=== PATIENT | female | born 1955 | race Caucasian/White ===

== ENCOUNTER 2017-02-14 19:15 | Emergency (ER) | payer SELFPAY ==
--- NOTE | 2017-02-14 20:33 | DIAGNOSTIC IMAGING REPORT ---
PROCEDURE: XR CHEST 1 VIEW INDICATION: CHEST PAIN TECHNIQUE: Portable AP view (1930 hours). COMPARISON: None. FINDINGS: There is a 10 mm nodular density overlying the left lower thorax which may represent a nipple shadow. Lungs are otherwise clear. Heart and mediastinum are normal. Thorax is normal. IMPRESSION: 1. There is a 10 mm nodular density overlying the left lower thorax which may represent a nipple shadow. Repeat chest x-ray with nipple markers is recommended. 2. Otherwise negative chest. 3. Findings discussed with Dr. Russ Garcia.
--- NOTE | 2017-02-14 21:46 | DIAGNOSTIC IMAGING REPORT ---
PROCEDURE: XR CHEST 2 VIEW INDICATION: S pain. Follow up possible nipple shadows. TECHNIQUE: PA and lateral views at 2045 hours with nipple markers (includes repeat oblique RPO view). COMPARISON: Compared to portable chest x-ray earlier in the day (02/14/2017 1930 hours). FINDINGS: Confirmation of bilateral lower lobe nipple shadows of. No evidence of lung nodule. Lungs are clear. Heart and mediastinum are normal. Thorax is normal. IMPRESSION: 1. Confirmation of bilateral nipple shadows. 2. Negative chest. 3. Findings discussed with Dr. Russ Garcia.
--- NOTE | 2017-02-14 23:19 | ED NURSING NOTES ---
Clinical Report - Nurses [facility] [address] [place] [address] 02/14/2017 19:16 Patient: TEETEE DOIMNGO TRIAGE Triage time 19:17. Acuity: LEVEL 2. Chief Complaint: CHEST PAIN and DISCOMFORT. Alert. SEPSIS SCREEN: Sepsis Screen. Negative (no infection suspected/documented). --19:24 Augustine Kirby R.N. 19:17 02/14/17. BP: 192/112. HR: 66 (regular and normal rate). RR: 20 (regular). O2 saturation: 100% on room air. Temp: 98.3 F. Pain level now: 04/20. --19:24 Augustine Kirby R.N. Weight: 47.6 kg stated. Height/Length: 66 inches Per Patient. BMI: 16.9. --19:25 Augustine Kirby R.N. Medications Propranolol HCl ER Oral. --19:19 Augustine Kirby R.N. Allergies Codeine. Penicillins. --19:19 Augustine Kirby R.N. History Arrived by EMS. Historian: patient. Unaccompanied. Onset. (2 weeks ago). ( "chest pressure" with vomiting, nausea, and SOA for "a couple weeks".). She has had difficulty breathing, nausea and vomiting. Treatment PRODUCT SAFETY HEAD: (Nitro spray per EMS). SOCIAL HX: Former smoker. History of occasional drug use: marijuana. No alcohol use. --19:24 Augustine Kirby R.N. SELF HARM ASSESSMENT: A self harm assessment was performed. The patient answered "no" to the question "Do you have thoughts of harming or killing yourself?" and "Are you here because you tried to hurt yourself?". ABUSE ASSESSMENT: Abuse assessment: The patient was asked "Do you feel safe in your home?". --19:25 Augustine Kirby R.N. PROBLEMS: COPD - Chronic Obstructive Pulmonary Disease. Hypertension. --19:20 Augustine Kirby R.N. ADDITIONAL SURGERIES: Hysterectomy. Knee Surgery. Nose Surgery. --19:21 Augustine Kirby R.N. Interventions ID and allergy band on patient. To treatment room. --19:24 Augustine Kirby R.N. PHYSICAL ASSESSMENT ( Patient pulled her IV out by accident. Bleeding controlled and dressing applied. Dr. Ruben Lou, notified and he stated that it was ok for her to not have the IV replaced at this time.). --22:14 Augustine Kirby R.N. ( Patient states that her nausea is "better" but still present.). --22:14 Augustine Kirby R.N. 22:14 02/14/17. BP: 178/106. HR: 74. RR: 20. O2 saturation: 100% on room air. --22:14 Augustine Kirby R.N. ( Patient resting in bed). GENERAL / NEURO / PSYCH: Alert. Oriented X 4. RESPIRATORY: Respirations not labored. --22:46 Augustine Kirby R.N. NURSING PROGRESS NOTES 19:25 02/14/2017 Site #1 started prior to arrival by EMS via IV in the right forearm with an 18g angiocath. Saline lock flushed with 10 mL saline. --19:26 Augustine Kirby R.N. youth nutritional monitor, pulse oximeter and NIBP monitor placed on patient. Patient gowned. Head of bed elevated. Reassurance given. Two patient identifiers checked. Call light placed in reach. Side rails up x 2. Bed placed in lowest position. Brakes of bed on. Patient ready for evaluation- chart flagged. Patient waiting for evaluation. --19:26 Augustine Kirby R.N. 20:12 02/14/2017 Started bag #1 1000 mL IV Fluids IV NS (Saline); bolus of 500 mL over 30 minute(s) then at 125 mL/hr over 4 hour(s) via site #1 via IV pump. Allergies verified and confirmed 5 rights. IV patency established. IV site checked: no pain, redness, or swelling. IV flushed thoroughly pre- and post-medication administration. --20:12 Keesha Cordero R.N. 20:12 02/14/2017 Zofran (Ondansetron HCl) IVP 4 mg given over 1 minute(s) via site #1. Allergies verified and confirmed 5 rights. IV patency established. IV site checked: no pain, redness, or swelling. IV flushed thoroughly pre- and post-medication administration. --20:12 Keesha Cordero R.N. 20:37 02/14/2017 PROTONIX (Pantoprazole Sodium) IVP 40 mg given over 2 minute(s) via site #1. Allergies verified and confirmed 5 rights. IV patency established. IV site checked: no pain, redness, or swelling. IV flushed thoroughly pre- and post-medication administration. IVP given by RN. --20:40 Augustine Kirby R.N. 20:40 02/14/2017 Clonidine Topical Patch/Pad 0.2 mg. Applied to the right upper arm. Allergies verified and confirmed 5 rights. --20:41 Augustine Kirby R.N. 21:09 02/14/2017 PHENERGAN (Promethazine HCl) IVP 25 mg given over 2 minute(s) via site #1. Allergies verified and confirmed 5 rights. IV patency established. IV site checked: no pain, redness, or swelling. IV flushed thoroughly pre- and post-medication administration. IVP given by RN. --21:14 Augustine Kirby R.N. 21:12 02/14/2017 IV Fluids IV NS Discontinued: completed. Total amount infused: 1000 mL. IV patency established. IV site checked: no pain, redness, or swelling. IV flushed thoroughly. --23:30 Augustine Kirby R.N. 21:25 02/14/2017 GI Cocktail WHITE PO 30 mL with Lidocaine Viscous Mouth/Throat 15 mL, Maalox Plus Oral 15 mL was refused by patient because of nausea. Augustine Kirby --21:25 Augustine Kirby R.N. 21:51 02/14/17. ( Patient accidentally pulled out her IV. Catheter observed to be intact. Right arm IV site cleaned and dressing applied. Primary RN notified). --21:51 Keesha Cordero R.N. 22:37 02/14/2017 HALDOL (Haloperidol Lactate) IM 5 mg given. Given in the left gluteus violeta. Allergies verified, confirmed 5 rights and sedative warning given to the patient. --22:37 Keesha Cordero R.N. 23:00 02/14/17. BP: 159/89. HR: 75. RR: 17. O2 saturation: 96% on room air. --23:14 Augustine Kirby R.N. <<STRICKEN ENTRY-- 23:00 02/14/17. BP: 159/89. HR: 75. O2 saturation: 96% on room air. --23:14 Augustine Kirby R.N. --END STRIKE>> Change to Details. --23:29 Augustine Kirby R.N. <<STRICKEN ENTRY-- 23:02/14/17. BP: 159/89. HR: 75. RR: 17. O2 saturation: 96% on room air. --23:14 Augustine Kirby R.N. --END STRIKE>> Change to Details. --23:29 Augustine Kriby R.N. DISPOSITION / DISCHARGE 23:02/14/17. BP: 159/89. HR: 75. RR: 17. O2 saturation: 96% on room air. --23:29 Augustine Kirby R.N. Departure time: 23:28. Condition at departure: stable. No learning barriers present. Discharge instructions provided and reviewed with the patient and family. Reviewed warnings. Reviewed medication(s) side effects, precautions, dosing and course information. Prescription(s) given to the patient. Treatments reviewed. Reviewed referrals for followup. Patient and family verbalized understanding. Written instructions provided in British. The patient was discharged home and accompanied by in store demonstrator. She left the Emergency Department ambulatory and via private vehicle. Boring Machine Set Up Operator driving. --23:29 Augustine Kirby R.N. 23:00 02/14/17. BP: 159/89. HR: 75. RR: 17. O2 saturation: 96% on room air. --23:29 Augustine Kirby R.N. <<STRICKEN ENTRY-- 23:00 02/14/17. BP: 159/89. HR: 75. RR: 17. O2 saturation: 96% on room air. --23:29 Augustine Kirby R.N. --END STRIKE>> Change to Details. --23:29 Augustine Kirby R.N. Locked/Released at 02/14/2017 23:31 by Augustine Kirby R.N.
--- NOTE | 2017-02-14 23:19 | ED NURSING NOTES ---
Clinical Report - Nurses [facility] [address] [place] [address] 02/14/2017 19:16 Patient: TEETEE DOMINGO TRIAGE Triage time 19:17. Acuity: LEVEL 2. Chief Complaint: CHEST PAIN and DISCOMFORT. Alert. SEPSIS SCREEN: Sepsis Screen. Negative (no infection suspected/documented). --19:24 Augustine Kirby R.N. 19:17 02/14/17. BP: 192/112. HR: 66 (regular and normal rate). RR: 20 (regular). O2 saturation: 100% on room air. Temp: 98.3 F. Pain level now: 04/20. --19:24 Augustine Kirby R.N. Weight: 47.6 kg stated. Height/Length: 66 inches Per Patient. BMI: 16.9. --19:25 Augustine Kirby R.N. Medications Propranolol HCl ER Oral. --19:19 Augustine Kirby R.N. Allergies Codeine. Penicillins. --19:19 Augustine Kirby R.N. History Arrived by EMS. Historian: patient. Unaccompanied. Onset. (2 weeks ago). ( "chest pressure" with vomiting, nausea, and SOA for "a couple weeks".). She has had difficulty breathing, nausea and vomiting. Treatment PESTICIDE USE MEDICAL COORDINATOR: (Nitro spray per EMS). SOCIAL HX: Former smoker. History of occasional drug use: marijuana. No alcohol use. --19:24 Augustine Kirby R.N. SELF HARM ASSESSMENT: A self harm assessment was performed. The patient answered "no" to the question "Do you have thoughts of harming or killing yourself?" and "Are you here because you tried to hurt yourself?". ABUSE ASSESSMENT: Abuse assessment: The patient was asked "Do you feel safe in your home?". --19:25 Augustine Kirby R.N. PROBLEMS: COPD - Chronic Obstructive Pulmonary Disease. Hypertension. --19:20 Augustine Kirby R.N. ADDITIONAL SURGERIES: Hysterectomy. Knee Surgery. Nose Surgery. --19:21 Augustine Kirby R.N. Interventions ID and allergy band on patient. To treatment room. --19:24 Augustine Kirby R.N. PHYSICAL ASSESSMENT ( Patient pulled her IV out by accident. Bleeding controlled and dressing applied. Dr. Ruben Lou, notified and he stated that it was ok for her to not have the IV replaced at this time.). --22:14 Augustine Kirby R.N. ( Patient states that her nausea is "better" but still present.). --22:14 Augustine Kirby R.N. 22:14 02/14/17. BP: 178/106. HR: 74. RR: 20. O2 saturation: 100% on room air. --22:14 Augustine Kirby R.N. ( Patient resting in bed). GENERAL / NEURO / PSYCH: Alert. Oriented X 4. RESPIRATORY: Respirations not labored. --22:46 Augustine Kirby R.N. NURSING PROGRESS NOTES 19:25 02/14/2017 Site #1 started prior to arrival by EMS via IV in the right forearm with an 18g angiocath. Saline lock flushed with 10 mL saline. --19:26 Augustine Kirby R.N. monitor technician, pulse oximeter and NIBP monitor placed on patient. Patient gowned. Head of bed elevated. Reassurance given. Two patient identifiers checked. Call light placed in reach. Side rails up x 2. Bed placed in lowest position. Brakes of bed on. Patient ready for evaluation- chart flagged. Patient waiting for evaluation. --19:26 Augustine Kirby R.N. 20:12 02/14/2017 Started bag #1 1000 mL IV Fluids IV NS (Saline); bolus of 500 mL over 30 minute(s) then at 125 mL/hr over 4 hour(s) via site #1 via IV pump. Allergies verified and confirmed 5 rights. IV patency established. IV site checked: no pain, redness, or swelling. IV flushed thoroughly pre- and post-medication administration. --20:12 Keesha Cordero R.N. 20:12 02/14/2017 Zofran (Ondansetron HCl) IVP 4 mg given over 1 minute(s) via site #1. Allergies verified and confirmed 5 rights. IV patency established. IV site checked: no pain, redness, or swelling. IV flushed thoroughly pre- and post-medication administration. --20:12 Keesha Cordero R.N. 20:37 02/14/2017 PROTONIX (Pantoprazole Sodium) IVP 40 mg given over 2 minute(s) via site #1. Allergies verified and confirmed 5 rights. IV patency established. IV site checked: no pain, redness, or swelling. IV flushed thoroughly pre- and post-medication administration. IVP given by RN. --20:40 Augustine Kirby R.N. 20:40 02/14/2017 Clonidine Topical Patch/Pad 0.2 mg. Applied to the right upper arm. Allergies verified and confirmed 5 rights. --20:41 Augustine Kirby R.N. 21:09 02/14/2017 PHENERGAN (Promethazine HCl) IVP 25 mg given over 2 minute(s) via site #1. Allergies verified and confirmed 5 rights. IV patency established. IV site checked: no pain, redness, or swelling. IV flushed thoroughly pre- and post-medication administration. IVP given by RN. --21:14 Augustine Kirby R.N. 21:12 02/14/2017 IV Fluids IV NS Discontinued: completed. Total amount infused: 1000 mL. IV patency established. IV site checked: no pain, redness, or swelling. IV flushed thoroughly. --23:30 Augustine Kirby R.N. 21:25 02/14/2017 GI Cocktail WHITE PO 30 mL with Lidocaine Viscous Mouth/Throat 15 mL, Maalox Plus Oral 15 mL was refused by patient because of nausea. Augustine Kirby --21:25 Augustine Kirby R.N. 21:51 02/14/17. ( Patient accidentally pulled out her IV. Catheter observed to be intact. Right arm IV site cleaned and dressing applied. Primary RN notified). --21:51 Keesha Cordero R.N. 22:37 02/14/2017 HALDOL (Haloperidol Lactate) IM 5 mg given. Given in the left gluteus violeta. Allergies verified, confirmed 5 rights and sedative warning given to the patient. --22:37 Keesha Cordero R.N. 23:00 02/14/17. BP: 159/89. HR: 75. RR: 17. O2 saturation: 96% on room air. --23:14 Augustine Kiryb R.N. <<STRICKEN ENTRY-- 23:00 02/14/17. BP: 159/89. HR: 75. O2 saturation: 96% on room air. --23:14 Augustine Kirby R.N. --END STRIKE>> Change to Details. --23:29 Augustine Kirby R.N. <<STRICKEN ENTRY-- 23:02/14/17. BP: 159/89. HR: 75. RR: 17. O2 saturation: 96% on room air. --23:14 Augustine Kirby R.N. --END STRIKE>> Change to Details. --23:29 Augustine Kirby R.N. DISPOSITION / DISCHARGE 23:02/14/17. BP: 159/89. HR: 75. RR: 17. O2 saturation: 96% on room air. --23:29 Augustine Kirby R.N. Departure time: 23:28. Condition at departure: stable. No learning barriers present. Discharge instructions provided and reviewed with the patient and family. Reviewed warnings. Reviewed medication(s) side effects, precautions, dosing and course information. Prescription(s) given to the patient. Treatments reviewed. Reviewed referrals for followup. Patient and family verbalized understanding. Written instructions provided in Thai. The patient was discharged home and accompanied by artistic associate. She left the Emergency Department ambulatory and via private vehicle. Rn Medicare driving. --23:29 Augustine Kirby R.N. 23:00 02/14/17. BP: 159/89. HR: 75. RR: 17. O2 saturation: 96% on room air. --23:29 Augustine Kirby R.N. <<STRICKEN ENTRY-- 23:00 02/14/17. BP: 159/89. HR: 75. RR: 17. O2 saturation: 96% on room air. --23:29 Augustine Kirby R.N. --END STRIKE>> Change to Details. --23:29 Augustine Kirby R.N. Locked/Released at 02/14/2017 23:31 by Augustine Kirby R.N.
--- NOTE | 2017-02-14 23:19 | ED CLINICAL REPORT ---
Clinical Report - Physicians/Mid Levels [facility] [address] [place] [address] 02/14/2017 19:16 Patient: TEETEE DOMINGO Time Seen: 19:33. Arrived- By private vehicle. Historian- patient. HISTORY OF PRESENT ILLNESS Chief Complaint: CHEST PAIN. At its maximum, severity described as 8 / 10. When seen in the E.D., severity described as 6 / 10. Modifying factors- worsened by exertion. Not relieved by anything. It is described as tightness and sharp and tearing and it is described as located in the central chest area and radiating to the left shoulder and left scapula. This started about 2 weeks ago and is still present. It was gradual in onset and has been intermittent and waxing/waning. The patient cannot recall the circumstances at the onset. The patient has had mild difficulty breathing, moderate nausea and mild vomiting. No blood-tinged emesis or frankly bloody emesis and has experienced diaphoresis. Similar symptoms previously: None. REVIEW OF SYSTEMS No chills, fever, calf pain, abdominal pain or black stools. No bloody stools, constipation or urinary problems. She has had fatigue and palpitations and experienced sweats. She has had a mild cough productive of scant amounts of sputum (black and cosby). She has had mild pedal edema involving the right and left leg. She has had mild diarrhea. This has occurred twice. All systems otherwise negative, except as recorded above. PAST HISTORY PCP - Jack. Problems: Hyperthyroidism. COPD - Chronic Obstructive Pulmonary Disease. Hypertension. Additional Surgeries: Hysterectomy. Knee Surgery. Nose Surgery. Medications: Propranolol HCl ER Oral. Allergies: Codeine. Penicillins. SOCIAL HISTORY Smoker- current status unknown. Occasional alcohol use. History of occasional drug use: marijuana. FAMILY HISTORY Family medical history is unknown due to adoption. ADDITIONAL NOTES The nursing notes have been reviewed. PHYSICAL EXAM Vital Signs: 02/14/2017 19:17 BP: 192/112. HR: 66. RR: 20. O2 saturation: 100%. Temp: 98.3 F. Pain level now: 610. Have been reviewed. Appearance: Alert. Anxious. Eyes: Pupils equal, round and reactive to light. ENT: Pharynx normal. Neck: Normal inspection. Neck supple. CVS: Normal heart rate and rhythm. Heart sounds normal. Respiratory: No respiratory distress. Decreased air movement. No rales, rhonchi or wheezes. Abdomen: Soft. Mild tenderness in the epigastric area. Bowel sounds normal. No organomegaly. No mass. Back: Normal external inspection. No CVA tenderness. Skin: Skin warm and dry. Normal skin color. Normal skin turgor. Extremities: Extremities exhibit normal ROM. No calf tenderness. No lower extremity edema. LABS, X-RAYS, AND EKG EKG: Rate: 61. Q waves in lead V1 and V2. Prior EKG unavailable. The study has been independently viewed by me. Chest X-ray: No acute disease. Normal lung markings present. Normal heart size. No infiltrate. Views: AP (portable). Technique: good. The X-rays were independently viewed by me and interpreted by the radiologist. The X-rays were discussed with the radiologist (Via PACS). Laboratory Tests: UA-Culture if indicated: (JENNI: 02/14/2017 21:07) ( MsgRcvd 02/14/2017 22:01) Final results Test Result Flag Units (Reference) URINE COLOR YELLOW URINE APPEARANCE CLEAR URINE GLUCOSE NEGATIVE (NEGATIVE) URINE BILIRUBIN NEGATIVE (NEGATIVE) URINE KETONE 1+ (NEGATIVE) URINE SPECIFIC GRAVITY 1.020 (1.010-1.030) URINE PH 7.0 (5.0-8.0) URINE PROTEIN NEGATIVE (NEGATIVE) URINE UROBILINOGEN 0.2 EU/dL (0.2-1.0) URINE NITRITE NEGATIVE (NEGATIVE) URINE BLOOD NEGATIVE (NEGATIVE) URINE LEUK ESTERASE NEGATIVE (NEGATIVE) URINE RBC 0-1 rbc/hpf (0-1) URINE WBC 0-1 wbc/hpf (0-1) URINE EPITHELIAL CELLS 0-1 EPI/hpf (0-5) URINE BACTERIA NONE SEEN (NONE SEEN) URINE COMMENT CULT NOT INDICATED URINE CULTURES ARE SET-UP BASED ON THE FOLLOWING CRITERIA:POSITIVE NITRITEPOSITIVE LEUKOCYTE ESTERASEGREATER THAN 10 WHITE BLOOD CELLSMODERATE (2+) OR GREATER BACTERIA CBC w Diff: (JENNI: 02/14/2017 19:25) ( MsgRcvd 02/14/2017 19:36) Final results Test Result Flag Units (Reference) WHITE BLOOD COUNT 8.7 K/uL (4.5-11.5) RED BLOOD COUNT 4.08 M/uL (4.00-5.20) HEMOGLOBIN 13.0 gm/dL (12.0-16.0) HEMATOCRIT 38.8 % (36.0-46.0) MEAN CELL VOLUME 95 fL (80-100) MEAN CORPUSCULAR HGB 32 pg (26-34) MEAN CORPUSCULAR HGB CONC 33 g/dL (31-37) RED CELL DISTRIBUTION WIDTH 13.7 % (11.6-14.8) PLATELET COUNT 286 K/uL (150-400) NEUTROPHIL % 66.1 % (50-75) LYMPH % 23.3 L % (25-40) MONO % 9.3 % (3-14) EOSINOPHIL % 1.0 % (0-4) BASOPHIL % 0.3 % (0-2) PT with INR: (JENNI: 02/14/2017 19:30) ( MsgRcvd 02/14/2017 20:04) Final results Test Result Flag Units (Reference) INR 1.5 H (0.8-1.2) Low Intensity Therapy: INR 1.5-2.0 PT range 18.5-23.1Mod.Intensity Therapy: INR 2.0-3.0 PT range 23.1-31.5High Intensity Therapy: INR 2.5-3.5 PT range 27.4-35.5High Intensity Therapy 2: INR 3.0-4.0 PT range 31.5-39.3 APTT 35 H SECONDS (24-34) D-DIMER QUANTITATIVE < 0.27 L ug/mLFEU (0.27-0.52) The primary value of this quantitative assay relates toits negative predictive value (i.e. exclusion) of pulmonaryembolism/deep vein thrombosis/DIC.Elevated levels of d-dimer may also occur with:, age, cancer, inflammation, liver disease,post-op, infection, hematoma, coronary disease, peripheralarteriopathy, bleeding disorders and thrombolytic treatment.Results should be correlated with other clinical andradiological data.Testing Methodology: Latex Immunoassay Urine Drug Screen: (JENNI: 02/14/2017 21:07) ( [facility] 02/14/2017 21:58) Final results Test Result Flag Units (Reference) AMPHETAMINE/METHAMPHETAMINE NEGATIVE (NEGATIVE) BARBITURATE NEGATIVE (NEGATIVE) BENZODIAZEPINE NEGATIVE (NEGATIVE) CANNABINOID POSITIVE H (NEGATIVE) COCAINE NEGATIVE (NEGATIVE) ECSTASY NEGATIVE (NEGATIVE) METHADONE NEGATIVE (NEGATIVE) OPIATE NEGATIVE (NEGATIVE) The urine drug screen is a qualitative screening test fordrug overdose and abuse. All screen results should beconsidered as presumptive.Drugs screened for are as follows:BenzodiazepinesCocaineAmphetamines/MetamphetaminesTHC (Tetrahydrocannabinol)OpiatesBarbituratesEcstasyMethadonePositive results are unconfirmed. For confirmation, notifythe lab for the specimen to be sent to the reference lab.All confirmations must be performed by a differentmethodology.The ingestion of natural herbal and plant productscontaining Ephedra/Ephedra metabolites can produce in urineone or more substances capable of cross reacting withamphetamine/methamphetamine immunoassays. These testsprovide a preliminary result only. A more specificalternative chemical method must be used to obtain aconfirmed analytical result. Lipase: (JENNI: 02/14/2017 19:45) ( [facility] 02/14/2017 20:45) Final results Test Result Flag Units (Reference) LIPASE 146 U/L (73-393) AMYLASE 22 L U/L (25-115) TSH: (JNENI: 02/14/2017 19:45) ( [facility] 02/14/2017 20:45) Final results Test Result Flag Units (Reference) THYROID STIMULATING HORMONE 1.733 uIU/mL (0.30-3.74) BNP: (JENNI: 02/14/2017 19:30) ( [facility] 02/14/2017 20:15) Final results Test Result Flag Units (Reference) B-TYPE NATRIURETIC PEPTIDE 47.5 pg/ml (5-100) CHEM 13 PANEL: (JENNI: 02/14/2017 19:25) ( MsgRcvd 02/14/2017 20:01) Final results Test Result Flag Units (Reference) GLUCOSE 89 mg/dL (70-110) BUN 10 mg/dL (7-18) CREATININE 0.5 L mg/dL (0.6-1.3) Estimated GFR >60 mL/min Estimated GFR- >60 mL/min Note: Persistent reduction over 3 months in eGFR<60 mL/min/1.73 m2 defines CKD. Patients with eGFR values>=60 mL/min/1.73 m2 may also have CKD if evidence ofpersistent proteinuria. Additional information may be foundat www.kidney.org. SODIUM 145 mmol/L (136-145) POTASSIUM 3.3 L mmol/L (3.5-5.1) CHLORIDE 110 H mmol/L (98-107) CARBON DIOXIDE 25 mmol/L (21-32) CALCIUM 7.2 L mg/dL (8.5-10.1) TOTAL PROTEIN 5.5 L g/dL (6.4-8.2) ALBUMIN 2.9 L g/dL (3.3-5.0) BILIRUBIN, TOTAL 0.4 mg/dL (0.0-1.0) ALKALINE PHOSPHATASE 59 U/L (46-116) AST (SGOT) 14 L U/L (15-37) ALT (SGPT) 19 U/L (12-78) MAGNESIUM 1.3 L mg/dL (1.8-2.4) CPK 29 U/L (24-260) TROPONIN I <0.05 ng/mL (0.00-1.5) TROPONIN REFERENCE RANGE:<0.1 NEGATIVE0.1-1.5 INDETERMINANT>1.5 POSITIVE . PROGRESS AND PROCEDURES Course of Care: 21:15 02/14/17. the case was discussed with Dr. Perez at change of shift. We reviewed the patient's history and physical examination findings and the results of her studies. He will follow up on the results of her therapy and will arrange an appropriate disposition for her. - MW the patient is a pleasant 61-year-old female presenting for evaluation of chest pain. Patient has been evaluated by the previous doctor. I have increased vessels with patient and performed my own history and examination. Agree with t We'll follow up on the patient's laboratory studies. Workup shows patient with negative troponin as well as negative d-dimer. EKG is also unremarkable. No otheracute findings on patient's workup. He since chest x-ray does not show any signs of consolidation. Because the patient's negative d-dimer. Do not fill patient has thoracic aortic dissection orpulmonary embolism. Troponin is also negative. Do not feel patient needs to be admitted to the hospital require further emergency department workup/evaluation. The patient does however need outpatient cardiology follow-up. referral to cardiology placed. Patient currently is resting in bed and in no acute distress. I discussion with patient in regards to her workup here in the emergency department including home care, follow-up, and return precautions. All questions have been answered. The patient expressed understanding of these instructions and was agreeable to them. Patient is stable. Patient/family counseled. Old clinic records reviewed. Disposition: Discharged. Condition: good. CLINICAL IMPRESSION 02/14/2017 23:00 BP: 159/89. HR: 75. O2 saturation: 96%. Moderate nausea with vomiting. Oxygen saturation normal. Atypical chest pain .12 lead EKG performed. (acute). Uncontrolled essential hypertension. Mild hypocalcemia (acute). Hypokalemia (acute mild). Mild hypomagnesemia (acute). INSTRUCTIONS (Continue taking your multivitamin). Your Current Medications: CONTINUE TAKING THE FOLLOWING MEDICATIONS: Propranolol HCl ER Oral. Prescription Medications: Zofran (orally disintegrating tablets) 4 mg: take 1 orally every 8 hours as needed for nausea and vomiting. Dispense ten (10). No refill. Substitution is permissible. OTC Medications: Aspirin 81 mg (available over the counter): take 1 orally every 24 hours. Dispense thirty (30). No refills. Follow-up: Return to the emergency department as needed. Follow up with your doctor in three. Reason for referral: recheck today's concerns. Summary of care provided to patient via paper. Screening today revealed the patient's blood pressure to be in the hypertensive range. Blood pressure screening was not performed during this visit because the patient has an active diagnosis of hypertension. The patient should follow up with a primary care provider for blood pressure management. Understanding of the discharge instructions verbalized by patient. Follow-up with: Royce Aguillon MD, Cardiology, , [facility] [id number] [facility] [address], [place], [address] Follow up in three days. Reason for referral: recheck today's concerns. Summary of care provided to patient via paper. (Electronically signed by Ruben Perez Dr. 02/19/2017 22:10)
--- NOTE | 2017-02-14 23:19 | ED ORDER SUMMARY ---
..... Patient: TEETEE DOMINGO OrderSheet [facility] VisitID: [id number] [place] [address] 61y, F Registration Date/Time: 02/14/2017 ORDER SHEET Weight: 47.6 kg (stated) Allergies: Codeine, Penicillins GENERAL ORDERS: Staffing Executive (Continuous) (19:22 02/14/2017 DDavis R.N. per protocol) (19:26 DDavis R.N.) Cardiac Panel Stat (19:22 02/14/2017 DDavis R.N. per protocol) (Ack 19:26 DDavis R.N.) (19:31 TBowen R.N.) EKG - ER Stat (19:02/14/2017 DDavis R.N. per protocol) (Ack 19:26 DDavis R.N.) (19:31 TBowen R.N.) Chest 1V Urgent (19:33 02/14/2017 Suzy HEADLEY) (Ack 19:41 SRedmond) (19:47 MCampbell) Staffing Executive (Continuous) (19:33 02/14/2017 Suzy HEADLEY) (19:35 DDavis R.N.) D-Dimer Urgent (19:34 02/14/2017 Suzy HEADLEY) (19:35 DDavis R.N.) PT with INR Urgent (19:34 02/14/2017 Suzy HEADLEY) (19:35 DDavis R.N.) PTT Urgent (19:34 02/14/2017 Suzy HEADLEY) (19:35 DDavis R.N.) BNP Urgent (19:34 02/14/2017 Suzy HEADLEY) (19:35 DDavis R.N.) Oxygen (2 L/min) (NC) (19:34 02/14/2017 Suzy HEADLEY) (19:35 DDavis R.N.) Pulse oximeter (19:34 02/14/2017 Suzy HEADLEY) (19:35 DDavis R.N.) TSH Urgent (19:56 02/14/2017 Suzy HEADLEY) (Ack 19:58 SRedmond) (20:13 EInderbitzen R.N.) Amylase Urgent (20:15 02/14/2017 Suzy HEADLEY) (Ack 20:17 SReneetu) (20:40 DDavis R.N.) Lipase Urgent (20:15 02/14/2017 Suzy HEADLEY) (Ack 20:17 SReneetu) (20:40 DDavis R.N.) Chest 2V (with nipple markers) Urgent (20:30 02/14/2017 Suzy HEADLEY) (Ack 20:33 Tulio) (20:54 MCampbell) Urine Drug Screen Urgent (21:37 02/14/2017 DDavis R.N. verbal order read back to Amelia Munroe) (21:37 DDavis R.N.) UA-Culture if indicated Urgent (21:37 02/14/2017 DDavis R.N. verbal order read back to Amelia Munroe) (21:37 DDavis R.N.) MEDICATION ORDERS: Aspirin PO 325 mg (Do not crush or chew, NOW) (19:34 02/14/2017 Suzy HEADLEY) (Cancelled: Patient [id number] EInderbitzen R.N.) Clonidine Topical 0.2 mg (NOW) (20:21 02/14/2017 Suzy HEADLEY) (20:41 DDavis R.N.) GI Cocktail WHITE PO 30 mL with Lidocaine Viscous Mouth/Throat 15 mL, Maalox Plus Oral 15 mL (20:36 02/14/2017 Suzy HEADLEY) (Ack 20:41 DDavis R.N.) Phenergan IV 25 mg (HIGH ALERT MEDICATION, NOW) (20:55 02/14/2017 Suzy HEADLEY) (21:14 DDavis R.N.) Haldol IM 5 mg (HIGH ALERT MEDICATION, NOW) (22:30 02/14/2017 Amelia Munroe) (Ack 22:33 EInderbitzen R.N.) (22:37 EInderbitzen R.N.) IV FLUIDS: IV Saline Lock (19:22 02/14/2017 DDavis R.N. per protocol) (19:26 DDavis R.N.) IV Saline Lock (19:34 02/14/2017 Suzy HEADLEY) (19:35 DDavis R.N.) Zofran IV 4 mg (NOW) (19:57 02/14/2017 Suzy HEADLEY) (20:12 EInderbitaustin R.N.) IV NS : initial bolus 500 mL (1000 mL/hr), then 125 mL/hr for 4h (NOW); Urgent (19:57 02/14/2017 Suzy HEADLEY) (20:12 EInderbitzen R.N.) Protonix IVP 40mg 40 mg (Mix in NS 10ml over 2min) (20:08 02/14/2017 Suzy HEADLEY) (Ack 20:20 DDavis R.N.) (20:40 DDavis R.N.) ORDER SHEET NOTES: [Electronically signed by Augustine Kirby R.N. (23:31 02/14/2017)] [Electronically signed by Ruben Perez Dr. (22:10 02/19/2017)] [Electronically locked/signed by Augustine Kirby R.N. (23:31 02/14/2017)]
--- NOTE | 2017-02-14 23:19 | ED ORDER SUMMARY ---
..... Patient: TEETEE DOMINGO OrderSheet [facility] VisitID: [id number] [place] [address] 61y, F Registration Date/Time: 02/14/2017 ORDER SHEET Weight: 47.6 kg (stated) Allergies: Codeine, Penicillins GENERAL ORDERS: Restaurant Assistant Manager (Continuous) (19:22 02/14/2017 DDavis R.N. per protocol) (19:26 DDavis R.N.) Cardiac Panel Stat (19:22 02/14/2017 DDavis R.N. per protocol) (Ack 19:26 DDavis R.N.) (19:31 TBowen R.N.) EKG - ER Stat (19:02/14/2017 DDavis R.N. per protocol) (Ack 19:26 DDavis R.N.) (19:31 TBowen R.N.) Chest 1V Urgent (19:33 02/14/2017 Suzy HEADLEY) (Ack 19:41 SRedmond) (19:47 MCampbell) Restaurant Assistant Manager (Continuous) (19:33 02/14/2017 Suzy HEADLEY) (19:35 DDavis R.N.) D-Dimer Urgent (19:34 02/14/2017 Suzy HEADLEY) (19:35 DDavis R.N.) PT with INR Urgent (19:34 02/14/2017 Suzy HEADLEY) (19:35 DDavis R.N.) PTT Urgent (19:34 02/14/2017 Suzy HEADLEY) (19:35 DDavis R.N.) BNP Urgent (19:34 02/14/2017 Suzy HEADLEY) (19:35 DDavis R.N.) Oxygen (2 L/min) (NC) (19:34 02/14/2017 Suzy HEADLEY) (19:35 DDavis R.N.) Pulse oximeter (19:34 02/14/2017 Suzy HEADLEY) (19:35 DDavis R.N.) TSH Urgent (19:56 02/14/2017 Suzy HEADLEY) (Ack 19:58 SRedmond) (20:13 EInderbitzen R.N.) Amylase Urgent (20:15 02/14/2017 Suzy HEADLEY) (Ack 20:17 SReneetu) (20:40 DDavis R.N.) Lipase Urgent (20:15 02/14/2017 Suzy HEADLEY) (Ack 20:17 SReneetu) (20:40 DDavis R.N.) Chest 2V (with nipple markers) Urgent (20:30 02/14/2017 Suzy HEADLEY) (Ack 20:33 Tulio) (20:54 MCampbell) Urine Drug Screen Urgent (21:37 02/14/2017 DDavis R.N. verbal order read back to Amelia Munroe) (21:37 DDavis R.N.) UA-Culture if indicated Urgent (21:37 02/14/2017 DDavis R.N. verbal order read back to Amelia Munroe) (21:37 DDavis R.N.) MEDICATION ORDERS: Aspirin PO 325 mg (Do not crush or chew, NOW) (19:34 02/14/2017 Suzy HEADLEY) (Cancelled: Patient [id number] EInderbitzen R.N.) Clonidine Topical 0.2 mg (NOW) (20:21 02/14/2017 Suzy HEADLEY) (20:41 DDavis R.N.) GI Cocktail WHITE PO 30 mL with Lidocaine Viscous Mouth/Throat 15 mL, Maalox Plus Oral 15 mL (20:36 02/14/2017 Suzy HEADLEY) (Ack 20:41 DDavis R.N.) Phenergan IV 25 mg (HIGH ALERT MEDICATION, NOW) (20:55 02/14/2017 Suzy HEADLEY) (21:14 DDavis R.N.) Haldol IM 5 mg (HIGH ALERT MEDICATION, NOW) (22:30 02/14/2017 Amelia Munroe) (Ack 22:33 EInderbitzen R.N.) (22:37 EInderbitzen R.N.) IV FLUIDS: IV Saline Lock (19:22 02/14/2017 DDavis R.N. per protocol) (19:26 DDavis R.N.) IV Saline Lock (19:34 02/14/2017 Suzy HEADLEY) (19:35 DDavis R.N.) Zofran IV 4 mg (NOW) (19:57 02/14/2017 Suzy HEADLEY) (20:12 EInderbitaustin R.N.) IV NS : initial bolus 500 mL (1000 mL/hr), then 125 mL/hr for 4h (NOW); Urgent (19:57 02/14/2017 Suzy HEADLEY) (20:12 EInderbitzen R.N.) Protonix IVP 40mg 40 mg (Mix in NS 10ml over 2min) (20:08 02/14/2017 Suzy HEADLEY) (Ack 20:20 DDavis R.N.) (20:40 DDavis R.N.) ORDER SHEET NOTES: [Electronically signed by Augustine Kirby R.N. (23:31 02/14/2017)] [Electronically signed by Ruben Perez Dr. (22:10 02/19/2017)] [Electronically locked/signed by Augustine Kirby R.N. (23:31 02/14/2017)]
--- NOTE | 2017-02-19 22:10 | ED DISCHARGE INSTRUCTIONS ---
Patient: TEETEE DOMINGO General Instructions [facility] VisitID: [id number] [place] [address] 61y, F Registration Date/Time: 02/14/2017 02/14/2017 23:00 BP: 159/89. HR: 75. O2 saturation: 96%. Moderate nausea with vomiting. Oxygen saturation normal. Atypical chest pain .12 lead EKG performed. (acute). Uncontrolled essential hypertension. Mild hypocalcemia (acute). Hypokalemia (acute mild). Mild hypomagnesemia (acute). INSTRUCTIONS (Continue taking your multivitamin). Your Current Medications: CONTINUE TAKING THE FOLLOWING MEDICATIONS: Propranolol HCl ER Oral. Prescription Medications: Zofran (orally disintegrating tablets) 4 mg: take 1 orally every 8 hours as needed for nausea and vomiting. Dispense ten (10). No refill. Substitution is permissible. OTC Medications: Aspirin 81 mg (available over the counter): take 1 orally every 24 hours. Dispense thirty (30). No refills. Follow-up: Return to the emergency department as needed. Follow up with your doctor in three. Reason for referral: recheck today's concerns. Summary of care provided to patient via paper. Screening today revealed the patient's blood pressure to be in the hypertensive range. Blood pressure screening was not performed during this visit because the patient has an active diagnosis of hypertension. The patient should follow up with a primary care provider for blood pressure management. Understanding of the discharge instructions verbalized by patient. Follow-up with: Royce Aguillon MD, Cardiology, , [facility] - Cardiology, [id number] [address] [address], [place], [id number] Follow up in three days. Reason for referral: recheck today's concerns. Summary of care provided to patient via paper. ADDITIONAL INFORMATION Chest Pain, Uncertain Cause Chest pain can happen for a number of reasons. Sometimes the cause can not be determined. If yourcondition does not seem serious, and your pain does not appear to be coming from your heart, your doctor may recommend watching it closely. Sometimes the signs of a serious problem take more time to appear. Therefore, watch for the warning signs listed below. Home care After your visit, follow these recommendations: Rest today and avoid strenuous activity. Take any prescribed medicine as directed. Follow-up care Follow up with your doctor or this facility as instructed or if you do not start to feel better within 24 hours. Call 911 Get immediate medical attention if any of the following occur: A change in the type of pain: if it feels different, becomes more severe, lasts longer, or begins to spread into your shoulder, arm, neck, jaw or back Shortness of breath or increased pain with breathing Weakness, dizziness, or fainting Rapid heart beat Get prompt medical attention Call your doctor right away if any of the following occur: Cough with dark colored sputum (phlegm) or blood Fever of 100.4F(38C) or higher, or as directed by your health care provider Swelling, pain or redness in one leg Hypertension, Out Of Control (Established) Your blood pressure was unusually high today. This can occur as a result of missing doses of your blood pressure medicine. Some asthma inhalers, decongestants, diet pills, and street drugs such as cocaine and amphetamine can worsen hypertension. An increase in body weight, increase in salt intake, smoking, and caffeine are other causes. Emotional upset or acute pain can cause a sudden rapid rise in blood pressure which may return to normal after a period of rest. A normal blood pressure is less than 140/90. The first (top) number is the systolic pressure. The second (bottom) number is the diastolic pressure. Hypertension exists when either the top number is 140 or higher, OR the bottom number is 90 or higher on repeated measurements. Home Care: All patients with high blood pressure should do the following to lower their pressure. If you are on blood pressure medicines, then these methods may reduce or eliminate your need for medicines in the future. Begin a weight-loss program if you are overweight. Reduce your salt intake. Avoid high-salt foods (olives, pickles, smoked meats, salted potato chips, etc.). Do not add salt to your food at the table. Use only small amounts of salt when cooking. Begin an exercise program. Discuss with your doctor what type of exercise program would be best for you. It doesnt have to be difficult. Even brisk walking for 20 minutes3 times a week is a good form of exercise. Avoid medicines which contain heart stimulants. This includes many cold and sinus decongestant pills and sprays as well as diet pills. Check the warnings about hypertension on the label. Stimulants such as amphetamine or cocaine could be lethal for someone with hypertension. Never take these. Limit your caffeine intake or switch to decaf. Stop smoking. If you are a long-time smoker, this can be hard. Enroll in a stop-smoking program to improve your chance of success. Talk to your physician about ways to improve your chance of success. Learning how to handle stress better is an important part of any program to lower blood pressure. Learn about relaxation methods such as meditation, yoga, or biofeedback. If medicines were prescribed, take them exactly as directed. Missing doses may cause your blood pressure to get out of control. Consider buying an automatic blood pressure machine (available at many pharmacies). Use this to monitor your blood pressure and report to your doctor. Follow Up: Regular visits to your own doctor for blood pressure checks and medicine adjustment is an important part of your care. Make a follow-up appointment as directed by our staff. Get Prompt Medical Attention if any of the following occur: Chest, arm, shoulder, neck, or upper back pain Shortness of breath Severe headache Throbbing or rushing sound in the ears Nosebleed Extreme drowsiness, confusion, or fainting Dizziness or vertigo (dizziness with spinning sensation) Weakness of an arm or leg or one side of the face Difficulty with speech or vision Hypokalemia Hypokalemia means a low level of potassium in the blood. This most often occurs in patients who take diuretics (water pills). It can also occur due to severe vomiting or diarrhea. A mild case usually causes no symptoms. It is only found with blood testing. More severe potassium loss causes generalized weakness, muscle or abdominal cramping, heart palpitations (rapid or irregular heartbeats) and low blood pressure. Home Care: 1) Take any potassium supplements prescribed. 2) Eat foods rich in potassium. The highest amount is found in artichoke, baked potatoes, spinach, cantaloupe, honeydew melon, cod, halibut, salmon, and scallops. White, red, or anderson beans are also very good sources. A modest amount is found in orange juice, bananas, carrots, and tomato juice. 3) Certain types of diuretics (water pills), such as Lasix (furosemide), require that you take potassium supplements for as long as you take the diuretic pills. If you are taking a diuretic, discuss the need for potassium supplements with your doctor. Follow Up with your doctor for a repeat blood test within the next week or as advised by our staff. Get Prompt Medical Attention if any of the following occur: -- Increased weakness -- Feeling dizzy -- Irregular heartbeat, extra beats or very fast heart rate -- Fainting spell Ondansetron Oral disintegrating tablet What is this medicine? ONDANSETRON (on [employer] se bailey) is used to treat nausea and vomiting caused by chemotherapy. It is also used to prevent or treat nausea and vomiting after surgery. How should I use this medicine? These tablets are made to dissolve in the mouth. Do not try to push the tablet through the foil backing. With dry hands, peel away the foil backing and gently remove the tablet. Place the tablet in the mouth and allow it to dissolve, then swallow. While you may take these tablets with water, it is not necessary to do so. Talk to your porcelain slusher regarding the use of this medicine in children. Special care may be needed. What side effects may I notice from receiving this medicine? Side effects that you should report to your doctor or health clinical care manager as soon as possible: allergic reactions like skin rash, itching or hives, swelling of the face, lips, or tongue breathing problems dizziness fast or irregular heartbeat feeling faint or lightheaded, falls fever and chills swelling of the hands and feet tightness in the chest Side effects that usually do not require medical attention (report to your doctor or health clinical care manager if they continue or are bothersome): constipation or diarrhea headache What may interact with this medicine? Do not take this medicine with any of the following medications: -apomorphine -cisapride -dofetilide -dronedarone -pimozide -thioridazine -ziprasidone This medicine may also interact with the following medications: -carbamazepine -phenytoin -rifampicin -tramadol -other medicines that prolong the QT interval (cause an abnormal heart rhythm) What if I miss a dose? If you miss a dose, take it as soon as you can. If it is almost time for your next dose, take only that dose. Do not take double or extra doses. Where should I keep my medicine? Keep out of the reach of children. Store between 2 and 30 degrees C (36 and 86 degrees F). Throw away any unused medicine after the expiration date. What should I tell my health care provider before I take this medicine? They need to know if you have any of these conditions: heart disease history of irregular heartbeat liver disease low levels of magnesium or potassium in the blood an unusual or allergic reaction to ondansetron, granisetron, other medicines, foods, dyes, or preservatives or trying to get breast-feeding What should I watch for while using this medicine? Check with your doctor or health clinical care manager as soon as you can if you have any sign of an allergic reaction. Aspirin Oral tablet What is this medicine? ASPIRIN ( pir in) is a pain reliever. It is used to treat mild pain and fever. This medicine is also used as directed by a doctor to prevent and to treat heart attacks, to prevent strokes, and to treat arthritis or inflammation. How should I use this medicine? Take this medicine by mouth with a glass of water. Follow the directions on the package or prescription label. You can take this medicine with or without food. If it upsets your stomach, take it with food. Do not take your medicine more often than directed. Talk to your porcelain slusher regarding the use of this medicine in children. While this drug may be prescribed for children as young as 12 years of age for selected conditions, precautions do apply. Children and teenagers should not use this medicine to treat chicken pox or flu symptoms unless directed by a doctor. Patients over 65 years old may have a stronger reaction and need a smaller dose. What side effects may I notice from receiving this medicine? Side effects that you should report to your doctor or health clinical care manager as soon as possible: allergic reactions like skin rash, itching or hives, swelling of the face, lips, or tongue breathing problems changes in hearing, ringing in the ears confusion general ill feeling or flu-like symptoms pain on swallowing redness, blistering, peeling or loosening of the skin, including inside the mouth or nose signs and symptoms of bleeding such as bloody or black, tarry stools; red or dark-brown urine; spitting up blood or brown material that looks like coffee grounds; red spots on the skin; unusual bruising or bleeding from the eye, gums, or nose trouble passing urine or change in the amount of urine unusually weak or tired yellowing of the eyes or skin Side effects that usually do not require medical attention (report to your doctor or health clinical care manager if they continue or are bothersome): diarrhea or constipation nausea, vomiting stomach gas, heartburn What may interact with this medicine? Do not take this medicine with any of the following medications: cidofovir ketorolac probenecid This medicine may also interact with the following medications: alcohol alendronate bismuth subsalicylate flavocoxid herbal supplements like feverfew, garlic, musa, ginkgo biloba, horse chestnut medicines for diabetes or glaucoma like acetazolamide, methazolamide medicines for gout medicines that treat or prevent blood clots like enoxaparin, heparin, ticlopidine, warfarin other aspirin and aspirin-like medicines NSAIDs, medicines for pain and inflammation, like ibuprofen or naproxen pemetrexed sulfinpyrazone varicella live vaccine What if I miss a dose? If you are taking this medicine on a regular schedule and miss a dose, take it as soon as you can. If it is almost time for your next dose, take only that dose. Do not take double or extra doses. Where should I keep my medicine? Keep out of the reach of children. Store at room temperature between 15 and 30 degrees C (59 and 86 degrees F). Protect from heat and moisture. Do not use this medicine if it has a strong vinegar smell. Throw away any unused medicine after the expiration date. What should I tell my health care provider before I take this medicine? They need to know if you have any of these conditions: anemia asthma bleeding problems child with chickenpox, the flu, or other viral infection diabetes gout if you frequently drink alcohol containing drinks kidney disease liver disease low level of vitamin K lupus smoke tobacco stomach ulcers or other problems an unusual or allergic reaction to aspirin, tartrazine dye, other medicines, dyes, or preservatives or trying to get breast-feeding What should I watch for while using this medicine? If you are treating yourself for pain, tell your doctor or health clinical care manager if the pain lasts more than 10 days, if it gets worse, or if there is a new or different kind of pain. Tell your doctor if you see redness or swelling. Also, check with your doctor if you have a fever that lasts for more than 3 days. Only take this medicine to prevent heart attacks or blood clotting if prescribed by your doctor or health clinical care manager. Do not take aspirin or aspirin-like medicines with this medicine. Too much aspirin can be dangerous. Always read the labels carefully. This medicine can irritate your stomach or cause bleeding problems. Do not smoke cigarettes or drink alcohol while taking this medicine. Do not lie down for 30 minutes after taking this medicine to prevent irritation to your throat. If you are scheduled for any medical or dental procedure, tell your healthcare provider that you are taking this medicine. You may need to stop taking this medicine before the procedure. You have been given the following additional information: Chest Pain, Uncertain Cause Hypertension, Established, Out Of Control Hypokalemia Ondansetron Oral disintegrating tablet Aspirin Oral tablet (Electronically signed by Ruben Perez Dr. 02/19/2017 22:10)
--- NOTE | 2017-02-19 22:11 | ED MED RECONCILIATION SUMMARY ---
Patient: TEETEE DOMINGO Medication Reconciliation Report [facility] VisitID: [id number] [place] [address] 61y, F Registration Date/Time: 02/14/2017 Weight: 47.6 kg Height/Length: 66 in. BMI: 16.9 ALLERGIES: Codeine, Penicillins The patient's Home Medications are listed below: CONTINUE TAKING THE FOLLOWING MEDICATIONS: Propranolol HCl ER Oral The source(s) of the original Home Medication information: Not obtained. The following Medications were given to the patient in the Emergency Department: IV NS IV Fluids bolus 500 mL over 30 minute(s), then 125 mL/hr, administered: 02/14/2017 8:12:00 PM Zofran [IVP] IVP 4 mg, administered: 02/14/2017 8:12:00 PM PROTONIX [IVP] IVP 40 mg, administered: 02/14/2017 8:37:00 PM Clonidine [Topical] Topical 0.2 mg, administered: 02/14/2017 8:40:00 PM PHENERGAN [IVP] IVP 25 mg, administered: 02/14/2017 9:09:00 PM HALDOL [IM] IM 5 mg, administered: 02/14/2017 10:37:00 PM The following Medications were prescribed to the patient: Zofran (orally disintegrating tablets) 4 mg: take 1 orally every 8 hours as needed for nausea and vomiting. Dispense ten (10). No refill. Substitution is permissible. -- Ruben Perez Dr. Aspirin 81 mg (available over the counter): take 1 orally every 24 hours. Dispense thirty (30). No refills. -- Ruben Perez Dr.
--- NOTE | 2017-02-19 22:11 | ED MAR SUMMARY ---
..... Medication Administration Record [facility] [address] [place] [address] Patient: TEETEE DOMINGO Visit ID: [id number] 61y, F Weight: 47.6 kg Height/Length: 66 in BMI: 16.9 ALLERGIES: Codeine, Penicillins Given 20:12 02/14/2017 Keesha Cordero R.N. Medication Administered: ZOFRAN [IVP] (ONDANSETRON HCL), Dose: 4 mg IVP over 1 minute(s), Site: #1 right forearm. Medication Ordered: Zofran IV 4 mg (NOW). Start 20:12 02/14/2017 Keesha Cordero R.N., Stop 21:12 02/14/2017 Augustine Kirby R.N. Medication Administered: IV NS (SALINE), Dose: IV Fluids over 4 hour(s), Rate: 125 mL/hr, Bolus: 500 mL over 30 minute(s), Dispensed: 1000 mL bag, Site: #1 right forearm. Medication Ordered: IV NS : initial bolus 500 mL (1000 mL/hr), then 125 mL/hr for 4h (NOW); Urgent. Given 20:37 02/14/2017 Augustine Kirby R.N. Medication Administered: PROTONIX [IVP] (PANTOPRAZOLE SODIUM), Dose: 40 mg IVP over 2 minute(s), Site: #1 right forearm. Medication Ordered: Protonix IVP 40mg 40 mg (Mix in NS 10ml over 2min). Given 20:40 02/14/2017 Augustine Kirby R.N. Medication Administered: CLONIDINE [TOPICAL], Dose: 0.2 mg Patch/Pad Topical. Medication Ordered: Clonidine Topical 0.2 mg (NOW). Given 21:09 02/14/2017 Augustine Kirby R.N. Medication Administered: PHENERGAN [IVP] (PROMETHAZINE HCL), Dose: 25 mg IVP over 2 minute(s), Site: #1 right forearm. Medication Ordered: Phenergan IV 25 mg (HIGH ALERT MEDICATION, NOW). Given 22:37 02/14/2017 Inderbitzen, Keesha, R.N. Medication Administered: HALDOL [IM] (HALOPERIDOL LACTATE), Dose: 5 mg IM. Medication Ordered: Haldol IM 5 mg (HIGH ALERT MEDICATION, NOW).
--- NOTE | 2017-02-19 22:11 | ED MAR SUMMARY ---
..... Medication Administration Record [facility] [address] [place] [address] Patient: TEETEE DOMINGO Visit ID: [id number] 61y, F Weight: 47.6 kg Height/Length: 66 in BMI: 16.9 ALLERGIES: Codeine, Penicillins Given 20:12 02/14/2017 Keesha Cordero R.N. Medication Administered: ZOFRAN [IVP] (ONDANSETRON HCL), Dose: 4 mg IVP over 1 minute(s), Site: #1 right forearm. Medication Ordered: Zofran IV 4 mg (NOW). Start 20:12 02/14/2017 Keesha Cordero R.N., Stop 21:12 02/14/2017 Augustine Kirby R.N. Medication Administered: IV NS (SALINE), Dose: IV Fluids over 4 hour(s), Rate: 125 mL/hr, Bolus: 500 mL over 30 minute(s), Dispensed: 1000 mL bag, Site: #1 right forearm. Medication Ordered: IV NS : initial bolus 500 mL (1000 mL/hr), then 125 mL/hr for 4h (NOW); Urgent. Given 20:37 02/14/2017 Augustine Kirby R.N. Medication Administered: PROTONIX [IVP] (PANTOPRAZOLE SODIUM), Dose: 40 mg IVP over 2 minute(s), Site: #1 right forearm. Medication Ordered: Protonix IVP 40mg 40 mg (Mix in NS 10ml over 2min). Given 20:40 02/14/2017 Augustine Kirby R.N. Medication Administered: CLONIDINE [TOPICAL], Dose: 0.2 mg Patch/Pad Topical. Medication Ordered: Clonidine Topical 0.2 mg (NOW). Given 21:09 02/14/2017 Augustine Kirby R.N. Medication Administered: PHENERGAN [IVP] (PROMETHAZINE HCL), Dose: 25 mg IVP over 2 minute(s), Site: #1 right forearm. Medication Ordered: Phenergan IV 25 mg (HIGH ALERT MEDICATION, NOW). Given 22:37 02/14/2017 Inderbitzen, Keesha, R.N. Medication Administered: HALDOL [IM] (HALOPERIDOL LACTATE), Dose: 5 mg IM. Medication Ordered: Haldol IM 5 mg (HIGH ALERT MEDICATION, NOW).
--- NOTE | 2017-02-19 22:11 | ED MED RECONCILIATION SUMMARY ---
Patient: TEETEE DOMINGO Medication Reconciliation Report [facility] VisitID: [id number] [place] [address] 61y, F Registration Date/Time: 02/14/2017 Weight: 47.6 kg Height/Length: 66 in. BMI: 16.9 ALLERGIES: Codeine, Penicillins The patient's Home Medications are listed below: CONTINUE TAKING THE FOLLOWING MEDICATIONS: Propranolol HCl ER Oral The source(s) of the original Home Medication information: Not obtained. The following Medications were given to the patient in the Emergency Department: IV NS IV Fluids bolus 500 mL over 30 minute(s), then 125 mL/hr, administered: 02/14/2017 8:12:00 PM Zofran [IVP] IVP 4 mg, administered: 02/14/2017 8:12:00 PM PROTONIX [IVP] IVP 40 mg, administered: 02/14/2017 8:37:00 PM Clonidine [Topical] Topical 0.2 mg, administered: 02/14/2017 8:40:00 PM PHENERGAN [IVP] IVP 25 mg, administered: 02/14/2017 9:09:00 PM HALDOL [IM] IM 5 mg, administered: 02/14/2017 10:37:00 PM The following Medications were prescribed to the patient: Zofran (orally disintegrating tablets) 4 mg: take 1 orally every 8 hours as needed for nausea and vomiting. Dispense ten (10). No refill. Substitution is permissible. -- Ruben Perez Dr. Aspirin 81 mg (available over the counter): take 1 orally every 24 hours. Dispense thirty (30). No refills. -- Ruben Perez Dr.
== END 2017-02-14 23:25 | disposition home or self-care (01) ==
LOC: ED SRH 19:15
DX: R07.89 Other chest pain (principal); E83.51 Hypocalcemia; E87.6 Hypokalemia; E83.42 Hypomagnesemia; I10 Essential (primary) hypertension; R11.2 Nausea with vomiting, unspecified; J44.9 Chronic obstructive pulmonary disease, unspecified; E05.90 Thyrotoxicosis, unspecified without thyrotoxic crisis or storm; Z87.891 Personal history of nicotine dependence; Z88.5 Allergy status to narcotic agent
CPT/HCPCS: 90004; 90100; 90616; 91320; 91556; 92235; 92530; 92610; 92720; 92760; 92761; 92762; 92763; 92764; 92765; 92766; 92767; 93140; 94001; 94060; 95059